=== PATIENT | male | born 1950 | race African-American/Black ===

== ENCOUNTER 2018-03-14 19:49 | Inpatient (IN) | payer OTHER ==
[~2018-03-14] VITALS: Ht 177.8 cm; Wt 90.3 kg
[~2018-03-14 19:49] MED LIST: ASPI-1159 PO; ATOR40TA70 PO; LISI40TA4 PO; METO25TA6 PO; NIFE60TA64 PO; SPIR25TA6 PO
[2018-03-14] MEDS ORDERED: POTASSIUM CHLORIDE 20MEQ/PACKET PO ONE (22:00)
[2018-03-14] MEDS ORDERED: ASPIRIN 81MG TABLET PO ONE (22:00)
[2018-03-14] MEDS ORDERED: KCL 20MEQ/100ML PREMIX 100 ML IV ONE (22:00)
[2018-03-14] MEDS ORDERED: ZOLPIDEM TARTRATE 5MG TABLET PO PRN (22:15)
[2018-03-14] MEDS ORDERED: GUAIFENESIN 200MG/10ML SUGAR FREE UDC PO PRN (22:15)
[2018-03-14] MEDS ORDERED: ACETAMINOPHEN 325MG TABLET PO PRN (22:15)
[2018-03-14] MEDS ORDERED: CLONIDINE 0.1MG TABLET PO PRN (22:15)
[2018-03-14] MEDS ORDERED: NITROGLYCERIN 0.4MG TABLET SL SL PRN (22:15)
[2018-03-14] MEDS ORDERED: LORAZEPAM 0.5MG TABLET PO PRN (22:15)
[2018-03-14] MEDS ORDERED: NA PHOS,M-B/NA PHOS,DI-BA ENEMA 118ML PR PRN (22:15)
[2018-03-14] MEDS ORDERED: KETOROLAC 15MG/ML VIAL IV PRN (22:15)
[2018-03-14] MEDS ORDERED: ONDANSETRON HCL 4MG/2ML VIAL IV PRN (22:15)
[2018-03-14] MEDS ORDERED: MAGNESIUM/ALUMINUM HYDROXIDE/SIMETHICONE 30ML UDC PO PRN (22:15)
[2018-03-14] MEDS ORDERED: IPRATROPIUM/ALBUTEROL 0.5-3(2.5)MG/3ML NEB INH PRN (22:15)
[2018-03-14] MEDS ORDERED: DOCUSATE SODIUM 100MG CAPSULE PO PRN (22:15)
[2018-03-15 00:44] VITALS: BP 129/80
[2018-03-15] MEDS ORDERED: TERA10CA4 PO (02:13)
[2018-03-15] MEDS ORDERED: LOSA100T14 PO (02:13)
[2018-03-15 04:00] VITALS: BP 126/88
[2018-03-15] MEDS ORDERED: MAGNESIUM 2 G PREMIX 50 ML IV NR (04:00)
[2018-03-15] MEDS ORDERED: KCL 20MEQ/100ML PREMIX 100 ML IV NR (04:00)
[2018-03-15] MEDS ORDERED: MVI, ADULT NO.1 10 ML, FOLIC ACID 1 MG, THIAMINE HCL 100 MG in SODIUM CHLORIDE 0.9% 1,0... IV NR ×4 (06:00)
[2018-03-15 07:25] LABS: FOLIC ACID (FOLATE) SERUM 6.9 ng/mL (>5.38)
[2018-03-15 07:32] LABS: ETHANOL BLOOD < 10 mg/dL
[2018-03-15 07:35] LABS: TOTAL IRON BINDING CAPACITY 266 ug/dL (250-450)
[2018-03-15 07:37] LABS: CREATINE KINASE 520 IU/L (39-308)
[2018-03-15 07:39] LABS: CREATINE KINASE MB FRACTION 1.9 ng/mL (0.5-3.6)
[2018-03-15 07:48] VITALS: BP 154/82
[2018-03-15] MEDS ORDERED: ENOXAPARIN 40MG/0.4ML SYR SUBCUT SCH (09:00)
[2018-03-15] MEDS ORDERED: METOPROLOL TARTRATE 25MG TABLET PO SCH (09:00)
[2018-03-15] MEDS ORDERED: LISINOPRIL 20MG TABLET PO SCH (09:00)
[2018-03-15] MEDS ORDERED: ASPIRIN 325MG EC TABLET PO SCH (09:00)
[2018-03-15] MEDS ORDERED: POTASSIUM CHLORIDE 20MEQ TABLET SR PO SCH ×2 (09:00→14:00)
[2018-03-15 10:04] LABS: HEMATOCRIT. 26.4 % (42.0-52.0); HEMOGLOBIN. 9.1 g/dL (14.0-18.0); MEAN CORPUSCULAR HEMOGLOBIN 30.3 pg (28.0-32.0); MEAN CORPUSCULAR VOLUME 87.7 fL (80.0-94.0); PLATELET 222 x1000/uL (130-400); RED BLOOD CELL COUNT 3.01 mill/uL (4.7-6.1); RED CELL DISTRIBUTION WIDTH 14.1 % (11.6-14.6)
[2018-03-15 12:00] VITALS: BP 136/80
[2018-03-15 13:32] LABS: CREATINE KINASE MB FRACTION 1.9 ng/mL (0.5-3.6)
[2018-03-15 16:54] LABS: PLATELET ESTIMATE NORMAL
== END 2018-03-15 15:00 | disposition home or self-care (01) | DRG 641 ==
LOC: ER 22:05 → 8WST 22:09 → ENRESERV 22:15
PROVIDERS: ADMIT Internal Medicine; ATTEND Internal Medicine
DX: E87.6 Hypokalemia (principal); M62.82 Rhabdomyolysis; R07.89 Other chest pain; I25.10 Atherosclerotic heart disease of native coronary artery without angina pectoris; D63.8 Anemia in other chronic diseases classified elsewhere; F17.210 Nicotine dependence, cigarettes, uncomplicated; I10 Essential (primary) hypertension; I25.2 Old myocardial infarction; Z91.14 Patient's other noncompliance with medication regimen; Z95.1 Presence of aortocoronary bypass graft; Z95.5 Presence of coronary angioplasty implant and graft; Z79.82 Long term (current) use of aspirin; Z79.899 Other long term (current) drug therapy
CPT/HCPCS: 36415; 82550; 82553; 82607; 82746; 83036; 83540; 83550; 83735; 84132; 84484; 85007; 85027; 93970; 96360; 99285; G0482; J1650; J3411; J3475; J3480; J3490; J7030; J7040

== ENCOUNTER 2019-01-19 12:42 | Emergency (ER) | payer OTHER ==
[~2019-01-19] VITALS: Ht 180.3 cm; Wt 91.4 kg
[~2019-01-19 12:42] MED LIST changes: -LISI40TA4 PO; +LOSA100T14 PO; -METO25TA6 PO; +OMEG-79 PO; -SPIR25TA6 PO; +TERA10CA4 PO
[2019-01-19] MEDS ORDERED: KETOROLAC 15MG/ML VIAL IV ONE (13:15)
[2019-01-19] MEDS ORDERED: METOCLOPRAMIDE HCL 10MG/2ML VIAL IV ONE (13:15)
[2019-01-19] MEDS ORDERED: SODIUM CHLORIDE 0.9% 1,000 ML IV ONE (13:15)
[2019-01-19 16:22] VITALS: BP 139/78
== END 2019-01-19 17:46 | disposition home or self-care (01) ==
LOC: ER 12:42
DX: R51 Headache (principal); E11.9 Type 2 diabetes mellitus without complications; I10 Essential (primary) hypertension; Z95.5 Presence of coronary angioplasty implant and graft
CPT/HCPCS: 96374; 96375; 99283; J1885; J2765; J7030